=== PATIENT | male | born 1955 | race Two or more races ===

== ENCOUNTER 2019-03-27 14:00 | Emergency (ER) | payer SELFPAY ==
[~2019-03-27] VITALS: Ht 172.7 cm; Wt 65.8 kg
--- NOTE | 2019-03-27 14:00 | NUR ---
BIB [facility],SEIZURE WHILE AT A [employer] CHECK STAND,NO TRAUMA, BLOOD SUGAR 156, TO ER BED 11, HOOKED TO MONITOR, CHANGED TO GOWN, PROVIDED W WARM BLANKET, AWAITING MD NAVARRO
--- NOTE | 2019-03-27 14:05 | NUR ---
SEIZURE PRECAUTIONS APPLIED.
--- NOTE | 2019-03-27 14:21 | NUR ---
DR GUNTER AT BEDSIDE
[2019-03-27] MEDS ORDERED: THIAMINE HCL 100 MG TABLET PO ONE (14:30)
[2019-03-27] MEDS ORDERED: IV NS 0.9% 1,000 ML BAG IV ONE (14:30)
[2019-03-27] MEDS ORDERED: THIAMINE HCL 100 MG TABLET ONE (14:31)
[2019-03-27 14:38] LABS: BASOPHILS # (AUTO) 0.1 /CMM (0.0-0.2); BASOPHILS % (AUTO) 1.2 % (0.0-2.0); EOSINOPHILS % (AUTO) 6.1 % (0.0-6.0); HEMATOCRIT 35 % (39-51); LYMPHOCYTES # (AUTO) 1.3 /CMM (0.8-4.8); LYMPHOCYTES % (AUTO) 29.5 % (20.0-44.0); MEAN CORPUSCULAR HGB CONC 35 g/dl (31.0-36.0); MEAN CORPUSCULAR VOLUME 98 fL (80-96); MONOCYTES # (AUTO) 0.6 /CMM (0.1-1.30); NEUTROPHILS # (AUTO) 2.2 /CMM (1.8-8.9); NEUTROPHILS % (AUTO) 49.2 % (43.0-81.0); PLATELET COUNT (AUTO) 79 /CMM (150-450); RED BLOOD CELL COUNT(AUTO) 3.53 MIL/uL (4.5-6.0); WHITE BLOOD COUNT (AUTO) 4.4 K/uL (4.3-11.0)
[2019-03-27 14:46] LABS: CARBON DIOXIDE 23 mmol/L (21-32); CHLORIDE 108 mmol/L (98-107); CREATININE 0.9 mg/dL (0.6-1.3); GLUCOSE 148 mg/dL (74-106); POTASSIUM 3.5 mmol/L (3.5-5.1); SODIUM SERUM 141 mmol/L (136-145); UREA NITROGEN, BLOOD 15 mg/dL (7-18)
[2019-03-27 14:53] LABS: ALANINE AMINOTRANSFERASE 120 U/L (12-78); ALBUMIN 2.8 g/dL (3.4-5.0); ALCOHOL, BLOOD < 3 mg/dL (0-0); ALKALINE PHOSPHATASE 178 U/L (46-116); ASPARTATE AMINOTRANSFERASE 126 U/L (15-37); BILIRUBIN,DIRECT 0.4 mg/dL (0.0-0.2); BILIRUBIN,TOTAL 1.2 mg/dL (0.2-1.0); TOTAL PROTEIN, SERUM 7.2 g/dL (6.4-8.2)
[2019-03-27 14:55] LABS: ACETAMINOPHEN 0 ug/ml (10-30); SALICYLATE < 0.2 mg/dL (2.8-20.0)
--- NOTE | 2019-03-27 15:32 | NUR ---
URINE SAMPLE SENT TO LAB
[2019-03-27 15:48] LABS: APPEARANCE,URINE CLEAR (CLEAR); BILIRUBIN,URINE NEGATIVE (NEGATIVE); BLOOD, URINE TRACE Ery/uL (NEGATIVE); COLOR,URINE YELLOW (YELLOW); KETONES,URINE NEGATIVE (NEGATIVE); LEUKOCYTE ESTERASE ,URINE NEGATIVE (NEGATIVE); NITRITE, URINE NEGATIVE (NEGATIVE); PROTEIN,URINE NEGATIVE (NEGATIVE); UGLUCOSE NEGATIVE (NEGATIVE); UROBILINOGEN,URINE 0.2 EU/dL (0.2)
--- NOTE | 2019-03-27 16:10 | NUR ---
MEAL TRAY PROVIDED. TOLERATING PO WELL.
[2019-03-27 16:15] LABS: BACTERIA,URINE None seen /HPF (None Seen); RBC,URINE 0-2 /HPF (0-2); SQUAMOUS EPITHELIAL CELL,UR 0-2 /HPF (None Seen); WBC,URINE 0-2 /HPF (0-3)
[2019-03-27 16:19] LABS: BAND % (MANUAL) 3 % (0.0-5.0); EOSINOPHILS % (MANUAL) 8 % (0-4); LYMPHOCYTES % (MANUAL) 37 % (16-48); MONOCYTES % (MANUAL) 9 % (0-11.0); NEUTROPHILS % (MANUAL) 43 (42-76)
[2019-03-27 16:30] VITALS: BP 152/84
--- NOTE | 2019-03-27 16:37 | NUR ---
IV removed. Catheter intact and site benign. Pressure and 4x4 applied to site. No bleeding noted. ID Band removed. Patient given written and verbal discharge instructions. Patient verbalizes understanding of instructions. Patient is ambulatory with steady gait. wearing pants, shirt, jacket, cap and rubber shoes. Refuses offer of half-way placement. Patient given list of available shelters in surrounding area.
== END 2019-03-27 16:42 | disposition home or self-care (01) ==
LOC: ER 14:04
DX: G40.909 Epilepsy, unspecified, not intractable, without status epilepticus (principal); F10.10 Alcohol abuse, uncomplicated; F17.200 Nicotine dependence, unspecified, uncomplicated; Y90.0 Blood alcohol level of less than 20 mg/100 ml; Z85.05 Personal history of malignant neoplasm of liver; Z86.19 Personal history of other infectious and parasitic diseases
CPT/HCPCS: 36415; 80048; 80076; 80305; 80307; 80329; 81001; 85025; 99283; G0480; J7030; 81000-TC

== ENCOUNTER 2019-04-24 13:16 | Emergency (ER) | payer MEDICAID ==
[~2019-04-24] VITALS: Ht 172.7 cm; Wt 77.6 kg
--- NOTE | 2019-04-24 13:40 | NUR ---
patient came in c/o dog bite to right index finger. active bleeding. deep lac noted. pending md consult
[2019-04-24] MEDS ORDERED: LIDOCAINE 1% INJ 50 ML MDV IJ ONE (13:55)
[2019-04-24] MEDS ORDERED: LIDOCAINE 2% 20 ML MDV TP ONE (14:00)
[2019-04-24] MEDS ORDERED: LIDOCAINE 2% 20 ML MDV ONE (14:06)
[2019-04-24 14:27] LABS: BASOPHILS % (AUTO) 1.5 % (0.0-2.0); EOSINOPHILS % (AUTO) 5.1 % (0.0-6.0); HEMATOCRIT 30 % (39-51); HEMOGLOBIN 10.3 g/dL (13.5-17.5); LYMPHOCYTES # (AUTO) 0.9 /CMM (0.8-4.8); LYMPHOCYTES % (AUTO) 26.5 % (20.0-44.0); MEAN CORPUSCULAR HGB CONC 34 g/dl (31.0-36.0); MEAN CORPUSCULAR VOLUME 99 fL (80-96); MONOCYTES # (AUTO) 0.4 /CMM (0.1-1.30); MONOCYTES % (AUTO) 13.6 % (2.0-12.0); NEUTROPHILS # (AUTO) 1.7 /CMM (1.8-8.9); NEUTROPHILS % (AUTO) 53.3 % (43.0-81.0); PLATELET COUNT (AUTO) 60 /CMM (150-450); RED BLOOD CELL COUNT(AUTO) 3.05 MIL/uL (4.5-6.0); WHITE BLOOD COUNT (AUTO) 3.2 K/uL (4.3-11.0)
[2019-04-24] MEDS ORDERED: MORPHINE SULFATE INJ 2 MG/ML DISP.SYRIN IV ONE (14:30)
[2019-04-24] MEDS ORDERED: TDAP [DIPH/PERTUSSIS/TET] 0.5 ML VIAL IM ONE ×2 (14:30→14:41)
[2019-04-24 14:36] LABS: CALCIUM, SERUM 7.7 mg/dL (8.5-10.1); CREATININE 0.7 mg/dL (0.6-1.3); POTASSIUM 3.7 mmol/L (3.5-5.1)
[2019-04-24] MEDS ORDERED: MORPHINE SULFATE INJ 2 MG/ML DISP.SYRIN ONE ×2 (14:40→19:53)
[2019-04-24 14:42] LABS: ALBUMIN 2.4 g/dL (3.4-5.0); BILIRUBIN,TOTAL 1.1 mg/dL (0.2-1.0); TOTAL PROTEIN, SERUM 6.3 g/dL (6.4-8.2)
--- NOTE | 2019-04-24 15:10 | NUR ---
CALLED [facility] TO INITIATE TRANSFER TO HIGHER LEVEL OF CARE
--- NOTE | 2019-04-24 15:22 | NUR ---
PENDING TX OUT FOR HAND SURGEON. PATIENT WOUND DRESSED PER MD ORDER. NON ADHERANT DRESSING LOOSLY WRAPPED WITH DRY DRESSING
[2019-04-24 15:35] LABS: EOSINOPHILS % (MANUAL) 7 % (0-4); LYMPHOCYTES % (MANUAL) 21 % (16-48); MONOCYTES % (MANUAL) 9 % (0-11.0); NEUTROPHILS % (MANUAL) 63 (42-76)
--- NOTE | 2019-04-24 16:07 | NUR ---
[facility] CALLED AND INFORMED ME THAT THEY ARE AT CAPACITY AT THEIR FACILITY AND CANNOT ACCOMODATE THE PT
--- NOTE | 2019-04-24 16:20 | NUR ---
[facility] CALLED BACK, STATES NO HAND SURGEON AVAILABLE AT THIS TIME. SPOKE TO
--- NOTE | 2019-04-24 16:20 | NUR ---
CALLED [facility] TO SEE IF THEY COULD ACCOMODATE THE PT. THEY INFORMED US THAT THEY CANNOT ACCEPT THE PT
--- NOTE | 2019-04-24 16:27 | NUR ---
CALLED [facility] TO SEE IF THEY COULD ACCOMODATE THE PATIENT. THEY INFORMED ME THAT THEY DO NOT HAVE A HAND SPECIALIST AND COULD NOT ACCOMODATE THE PATIENT.
--- NOTE | 2019-04-24 17:11 | NUR ---
DR BLAIR, THE HAND SURGEON SPOKE TO ER CASE PRESENTED WITH RECOMMENDATION FOR TRANSFER OF HIGHER LEVEL OF CARE
[2019-04-24] MEDS: PIPERACILLIN /TAZOBACTAM 3.375 G in IV D5W 50 ML IV SCH (17:56)
[2019-04-24] MEDS ORDERED: AMPICILLIN 500 MG in IV NS 0.9% 50 ML IV SCH (18:00)
--- NOTE | 2019-04-24 19:10 | NUR ---
care endorsed to rn for elisabeth. patient resting comfortably
[2019-04-24] MEDS: MORPHINE SULFATE INJ 2 MG/ML DISP.SYRIN IV PRN (19:59)
--- NOTE | 2019-04-24 22:50 | NUR ---
PT RESTING IN BED, NAD NOTED. WILL CONTINUE TO MONITOR.
[2019-04-25] MEDS ORDERED: PIPERACILLIN /TAZOBACTAM 3.375 G VIAL IV ONE ×2 (01:10→06:08)
--- NOTE | 2019-04-25 01:50 | NUR ---
RESTING IN BED, NAD NOTED. WILL CONTINUE TO MONITOR.
[2019-04-25] MEDS ORDERED: MORPHINE SULFATE INJ 2 MG/ML DISP.SYRIN ONE (02:39)
[2019-04-25] MEDS: MORPHINE SULFATE INJ 2 MG/ML DISP.SYRIN IV PRN (02:43)
--- NOTE | 2019-04-25 03:36 | NUR ---
[facility] CALLED. NO CAPACITY
--- NOTE | 2019-04-25 04:00 | NUR ---
PT RESTING IN BED, NAD NOTED. WILL CONTINUE TO MONITOR.
--- NOTE | 2019-04-25 05:00 | NUR ---
DRESSING CHANGE ON R HAND.
[2019-04-25] MEDS: PIPERACILLIN /TAZOBACTAM 3.375 G in IV D5W 50 ML IV SCH ×3 (06:00)
--- NOTE | 2019-04-25 07:33 | NUR ---
CALLED [facility] [phone] SPOKE WITH ISSAC. WILL CHECK TO SEE HARBOR AND CALL US BACK.
--- NOTE | 2019-04-25 07:44 | NUR ---
REPORT GIVEN TO GAIL BERRIOS FOR [facility].
--- NOTE | 2019-04-25 07:55 | NUR ---
GOT A CALL FROM DR. JEAN AT [facility]
[2019-04-25] MEDS ORDERED: LIDOCAINE 1% INJ 50 ML MDV IJ ONE (08:07)
[2019-04-25] MEDS ORDERED: MORPHINE SULFATE INJ 4 MG/ML DISP.SYRIN ONE (08:13)
--- NOTE | 2019-04-25 08:28 | NUR ---
PT ACCEPTED TO [facility] ER ACCEPTING MD: DR. PATRICIA NIÑO NUMBER FOR REPORT: [phone]
--- NOTE | 2019-04-25 08:29 | NUR ---
CALLED [facility], ETA 1000. TRIP# [id number]
[2019-04-25] MEDS ORDERED: MORPHINE SULFATE INJ 10 MG/ML DISP.SYRIN IV ONE (08:30)
--- NOTE | 2019-04-25 08:33 | NUR ---
GAVE REPORT TO MIREYA BERRIOS AT [facility] FOR [facility]
--- NOTE | 2019-04-25 10:22 | NUR ---
GAVE REPORT TO [facility]SP[facility]
[2019-04-25 10:28] VITALS: BP 120/72
== END 2019-04-25 10:36 | disposition home or self-care (01) ==
LOC: ER 13:18
DX: S62.632B Displaced fracture of distal phalanx of right middle finger, initial encounter for open fracture (principal); T14.8XXA Other injury of unspecified body region, initial encounter; F10.20 Alcohol dependence, uncomplicated; R74.0 Nonspecific elevation of levels of transaminase and lactic acid dehydrogenase [LDH]; D64.9 Anemia, unspecified; D72.819 Decreased white blood cell count, unspecified; D69.6 Thrombocytopenia, unspecified; F17.200 Nicotine dependence, unspecified, uncomplicated; Y90.9 Presence of alcohol in blood, level not specified; Z59.0 Homelessness; Z86.19 Personal history of other infectious and parasitic diseases; Z85.05 Personal history of malignant neoplasm of liver; W54.0XXA Bitten by dog, initial encounter; Y93.89 Activity, other specified; Y92.89 Other specified places as the place of occurrence of the external cause; Y99.8 Other external cause status
CPT/HCPCS: 29130; 36415; 73140; 80053; 85025; 85610; 85730; 90471; 90715; 96365; 96366; 96367; 96375; 96376; 99285; A4216; A6402 ×2; A6403 ×2; J0290; J2270 ×4; J2543 ×2; J3490 ×2; J7060